=== PATIENT | male | born 1930 | race Caucasian/White ===

== ENCOUNTER 2016-05-14 18:20 | Emergency (ER) | payer MEDICARE, BC, OTHER ==
[~2016-05-14] VITALS: Ht 177.8 cm; Wt 75.0 kg
[~2016-05-14 18:20] MED LIST: ASPI325T PO; LIPI40TA PO; NITR0.4S SL; PROS5TAB2 PO; TAMS0.4C67 PO; TRAM50 PO
[2016-05-14 18:32] VITALS: BP 133/69; PULSE 73; RESP 16; TEMP 98.7; O2SAT 95
--- NOTE | 2016-05-14 18:58 | PD ---
HPI Chief Complaint: Psychiatric Symptoms Time Seen by Provider: 18:58 Travel History International Travel<30 days: No Contact w/Intl Traveler<30days: No Traveled to known affect area: No History of Present Illness HPI 85-year-old male presents to the emergency department under Fink act for psychiatric evaluation. Patient was caught stealing at the grocery store. He states that he has been living by himself and his passed weight 1 year ago. He states that he is struggling financially and has not been able to provide himself with groceries so he decided to steal some food in order to eat. Patient states he knows that this was wrong. He has never done anything like this in the past. When he was under arrest, he states that he became very panicked. He was very upset. He was tearful. He did make comment that he would rather than go to senior living. He pleaded with the police did not taken to senior living. Patient denies suicidal or homicidal ideations. States that he has only and lives by himself since his 1 year ago. Denies any other symptoms at this time. PFSH Past Medical History Arthritis: Yes Blood Disorders: No Cancer: Yes (PROSTATE) Cardiovascular Problems: Yes High Cholesterol: Yes Diminished Hearing: No Endocrine: No Gastrointestinal Disorders: Yes GERD: Yes Glaucoma: Yes Genitourinary: Yes Immune Disorder: No Implanted Vascular Access Dvce: No Musculoskeletal: Yes Neurologic: No Psychiatric: No Reproductive: No Respiratory: No Pancreatitis: Yes Radiation Therapy: Yes Past Surgical History Cardiac Surgery: Yes Cholecystectomy: Yes Coronary Artery Bypass Graft: Yes (X 5) Genitourinary Surgery: Yes (BILAT. INGUINAL HERNIA REPAIRS) Other Surgery: Yes (PROSTATECTOMY DUT CA) Social History Alcohol Use: Yes (2 GLASSES OF WINE A WEEK.) Tobacco Use: No Substance Use: No Allergies-Medications (Allergen,Severity, Reaction): Coded Allergies: No Known Allergies (Verified , 04/26/13) Reported Meds & Prescriptions Reported Meds & Active Scripts Active Ultram (Tramadol HCl) 50 Mg Tab 50 Mg PO Q6H PRN FOR PAIN Reported Proscar (Finasteride) 5 Mg Tab 5 Mg PO DAILY Nitrostat (Nitroglycerin) 0.4 Mg Subl 0.4 Mg SL PRN 1 TAB SL EVERY 5 MINS X 3 PRN CHEST PAIN Aspirin 325 Mg Tab 325 Mg PO DAILY Flomax (Tamsulosin HCl) 0.4 Mg Cap 0.4 Mg PO DAILY Lipitor (Atorvastatin Calcium) 40 Mg Tab 40 Mg PO DAILY Review of Systems Except as stated in HPI: all other systems reviewed are Neg Physical Exam Narrative GENERAL: Well-nourished elderly male patient, ambulatory and in no acute distress SKIN: Focused skin assessment warm/dry. HEAD: Atraumatic. Normocephalic. EYES: Pupils equal and round. No scleral icterus. No injection or drainage. ENT: No nasal bleeding or discharge. Mucous membranes pink and moist. NECK: Trachea midline. No JVD. CARDIOVASCULAR: Regular rate and rhythm. No murmur appreciated. RESPIRATORY: No accessory muscle use. Clear to auscultation. Breath sounds equal bilaterally. GASTROINTESTINAL: Abdomen soft, non-tender, nondistended. Hepatic and splenic margins not palpable. MUSCULOSKELETAL: No obvious deformities. No clubbing. No cyanosis. No edema. NEUROLOGICAL: Awake and alert. No obvious cranial nerve deficits. Motor grossly within normal limits. Normal speech. Data Data Last Documented VS Vital Signs Date Time Temp Pulse Resp B/P Pulse Ox O2 Delivery O2 Flow Rate FiO2 05/14/16 18:32 98.7 73 16 133/69 95 Orders Complete Blood Count With Diff (05/14/16 18:50) Basic Metabolic Panel (Bmp) (05/14/16 18:50) Urinalysis - C+S If Indicated (05/14/16 18:50) Psych Screen (05/14/16 18:50) Drug Screen, Random Urine (05/14/16 18:50) Alcohol (Ethanol) (05/14/16 18:50) Diet Regular Basic (05/15/16 Breakfast) Labs Laboratory Tests Test 05/14/16 05/14/16 18:38 19:05 Urine Color YELLOW Urine Turbidity CLEAR Urine pH 5.5 Urine Specific [place] 1.014 Urine Protein TRACE mg/dL Urine Glucose (UA) NEG mg/dL Urine Ketones NEG mg/dL Urine Occult Blood NEG Urine Nitrite NEG Urine Bilirubin NEG Urine Urobilinogen LESS THAN 2.0 MG/DL Urine Leukocyte Esterase NEG Urine RBC 1 /hpf Urine WBC LESS THAN 1 /hpf Urine Mucus FEW /lpf Microscopic Urinalysis Comment CULT NOT INDICATED Urine Opiates Screen NEG Urine Barbiturates Screen NEG Urine Amphetamines Screen NEG Urine Benzodiazepines Screen NEG Urine Cocaine Screen NEG Urine Cannabinoids Screen NEG White Blood Count 5.4 TH/MM3 Red Blood Count 4.13 MIL/MM3 Hemoglobin 13.2 GM/DL Hematocrit 38.8 % Mean Corpuscular Volume 93.8 FL Mean Corpuscular Hemoglobin 31.8 PG Mean Corpuscular Hemoglobin 33.9 % Concent Red Cell Distribution Width 14.0 % Platelet Count 152 TH/MM3 Mean Platelet Volume 8.3 FL Neutrophils (%) (Auto) 79.1 % Lymphocytes (%) (Auto) 10.0 % Monocytes (%) (Auto) 9.8 % Eosinophils (%) (Auto) 0.8 % Basophils (%) (Auto) 0.3 % Neutrophils # (Auto) 4.2 TH/MM3 Lymphocytes # (Auto) 0.5 TH/MM3 Monocytes # (Auto) 0.5 TH/MM3 Eosinophils # (Auto) 0.0 TH/MM3 Basophils # (Auto) 0.0 TH/MM3 CBC Comment DIFF FINAL Differential Comment Sodium Level 141 MEQ/L Potassium Level 4.1 MEQ/L Chloride Level 106 MEQ/L Carbon Dioxide Level 26.8 MEQ/L Anion Gap 8 MEQ/L Blood Urea Nitrogen 18 MG/DL Creatinine 1.07 MG/DL Estimat Glomerular Filtration 65 ML/MIN Rate Random Glucose 100 MG/DL Calcium Level 9.4 MG/DL Ethyl Alcohol Level LESS THAN 3 MG/DL MDM Medical Decision Making Medical Screen Exam Complete: Yes Emergency Medical Condition: Yes Medical Record Reviewed: Yes Differential Diagnosis Adjustment reaction versus mood disorder versus personality disorder versus depression Narrative Course 85-year-old male presents to emergency department under a Fink act for psychiatric evaluation. Lab work is without acute concern. Patient denies suicidal or homicidal ideations. I have discussed the patient's case management who has contacted family and will work to set up a web content & social media manager to come out to the house and help with resources. At this time, patient is medically cleared to undergo psychiatric screening for further evaluation and disposition. Mental health screening discussed with the patient. Psychiatric screen ordered. Diagnosis Primary Impression: Adjustment disorder with depressed mood Referrals: Primary Care Physician Patient Instructions: General Instructions, Normal Exam (ED) Additional Instructions: Follow-up with primary care provider Utilize outpatient resources to help as needed Return immediately with any acute worsening of symptoms Med/Other Pt SpecificInfo: No Change to Meds Disposition: 01 DISCHARGE HOME Condition: Stable Evy Lindo May 14, 2016 18:58
[2016-05-14 19:29] LABS: AUTOMATED NEUTROPHIL # 4.2 TH/MM3 (1.8-7.7); BASOPHIL % 0.3 % (0.0-2.0); EOSINOPHIL % 0.8 % (0.0-4.0); HEMATOCRIT 38.8 % (39.0-51.0); HEMO FLAGS DIFF FINAL; LYMPHOCYTE # 0.5 TH/MM3 (1.0-4.8); MEAN CELL VOLUME 93.8 FL (80.0-100.0); MEAN CORPUSCULAR HEMOGLOBIN 31.8 PG (27.0-34.0); MEAN CORPUSCULAR HGB CONC 33.9 % (32.0-36.0); MONO % 9.8 % (0.0-8.0); NEUT % 79.1 % (16.0-70.0); PLATELET COUNT 152 TH/MM3 (150-450); RED BLOOD COUNT 4.13 MIL/MM3 (4.50-5.90); WHITE BLOOD COUNT 5.4 TH/MM3 (4.0-11.0)
[2016-05-14 19:30] LABS: BLOOD, URINE NEG (NEG); COMMENT (UR) CULT NOT INDICATED; CULTURE IF INDICATED CULT NOT INDICATED; GLUCOSE,URINE NEG (NEG); KETONE, URINE NEG (NEG); MUCUS URINE FEW /lpf (OCC); NITRITE,URINE NEG (NEG); PH, URINE 5.5 (5.0-8.5); URINE COLOR YELLOW (YELLW/STRAW)
[2016-05-14 19:41] LABS: ANION GAP 8 MEQ/L (5-15); BICARBONATE 26.8 MEQ/L (21.0-32.0); BLOOD UREA NITROGEN 18 MG/DL (7-18); CHLORIDE 106 MEQ/L (98-107); GLOMERULAR FILTRATION RATE 65 ML/MIN (>89); POTASSIUM 4.1 MEQ/L (3.5-5.1); SODIUM (NA) 141 MEQ/L (136-145)
[2016-05-14 20:16] LABS: AMPHETAMINE, URINE NEG (NEG); BARBITURATES, URINE NEG (NEG); COCAINE, URINE NEG (NEG)
--- NOTE | 2016-05-15 05:48 | HHI.FF ---
Face to Face Verification Diagnosis: (1) Adjustment disorder with depressed mood Physical Therapy Order: Evaluate and Treat Occupational Therapy Order: Evaluate and Treat Home Health Aide Order: To Assist In: vat operator and meal prep Mathematics Technician Order: To Evaluate: Support services Order: To Provide: Community services I have seen patient Robbie Ugalde on 05/15/16. My clinical findings support the need for the requested home health care services because: Limited ability to care for self I certify that my clinical findings support that this patient is homebound because: Unsteady gait/balance Mita Baez MD May 15, 2016 05:48
--- NOTE | 2016-05-15 05:48 | PD ---
Physical Exam Narrative I, Dr. Baez, have reviewed the advance practice practitioner's documentation and am in agreement, met with the patient face to face, made the diagnosis, and the medical decision making was done by me. *My assessment and Findings: Patient is an 85-year-old male brought in by police under Fink act. Patient was caught shoplifting food because he has to food at home and he was very embarrassed. He says that he would rather kill himself then burred in his family, and is very embarrassed that he might have to go to nursing home. He says he never had any intention of wanting to hurt himself. He is not depressed. He just does not want to ask his family for help. He has no complaints at this time. Exam shows no acute abnormalities. Data Data Last Documented VS Vital Signs Date Time Temp Pulse Resp B/P Pulse Ox O2 Delivery O2 Flow Rate FiO2 05/14/16 18:32 98.7 73 16 133/69 95 Orders Complete Blood Count With Diff (05/14/16 18:50) Basic Metabolic Panel (Bmp) (05/14/16 18:50) Urinalysis - C+S If Indicated (05/14/16 18:50) Psych Screen (05/14/16 18:50) Drug Screen, Random Urine (05/14/16 18:50) Alcohol (Ethanol) (05/14/16 18:50) Labs Laboratory Tests Test 05/14/16 05/14/16 18:38 19:05 Urine Color YELLOW Urine Turbidity CLEAR Urine pH 5.5 Urine Specific [place] 1.014 Urine Protein TRACE mg/dL Urine Glucose (UA) NEG mg/dL Urine Ketones NEG mg/dL Urine Occult Blood NEG Urine Nitrite NEG Urine Bilirubin NEG Urine Urobilinogen LESS THAN 2.0 MG/DL Urine Leukocyte Esterase NEG Urine RBC 1 /hpf Urine WBC LESS THAN 1 /hpf Urine Mucus FEW /lpf Microscopic Urinalysis Comment CULT NOT INDICATED Urine Opiates Screen NEG Urine Barbiturates Screen NEG Urine Amphetamines Screen NEG Urine Benzodiazepines Screen NEG Urine Cocaine Screen NEG Urine Cannabinoids Screen NEG White Blood Count 5.4 TH/MM3 Red Blood Count 4.13 MIL/MM3 Hemoglobin 13.2 GM/DL Hematocrit 38.8 % Mean Corpuscular Volume 93.8 FL Mean Corpuscular Hemoglobin 31.8 PG Mean Corpuscular Hemoglobin 33.9 % Concent Red Cell Distribution Width 14.0 % Platelet Count 152 TH/MM3 Mean Platelet Volume 8.3 FL Neutrophils (%) (Auto) 79.1 % Lymphocytes (%) (Auto) 10.0 % Monocytes (%) (Auto) 9.8 % Eosinophils (%) (Auto) 0.8 % Basophils (%) (Auto) 0.3 % Neutrophils # (Auto) 4.2 TH/MM3 Lymphocytes # (Auto) 0.5 TH/MM3 Monocytes # (Auto) 0.5 TH/MM3 Eosinophils # (Auto) 0.0 TH/MM3 Basophils # (Auto) 0.0 TH/MM3 CBC Comment DIFF FINAL Differential Comment Sodium Level 141 MEQ/L Potassium Level 4.1 MEQ/L Chloride Level 106 MEQ/L Carbon Dioxide Level 26.8 MEQ/L Anion Gap 8 MEQ/L Blood Urea Nitrogen 18 MG/DL Creatinine 1.07 MG/DL Estimat Glomerular Filtration 65 ML/MIN Rate Random Glucose 100 MG/DL Calcium Level 9.4 MG/DL Ethyl Alcohol Level LESS THAN 3 MG/DL MDM Supervised Visit with MARIVEL: Yes Narrative Course Patient's daughter is here. She feels safe taking him home, and is going to help him with a shopping from now on. Case management consult it and will arrange for services for him at the house. Patient reiterates that he was never suicidal and never wanted to hurt himself, he was just very embarrassed. Fink act lifted and patient discharged home. Patient advised to call 911 if he was feeling depressed and return to the ED as needed for any worsening symptoms. Diagnosis Primary Impression: Adjustment disorder with depressed mood Referrals: Primary Care Physician Patient Instructions: General Instructions, Normal Exam (ED) Departure Forms: Tests/Procedures Additional Instruction: Follow-up with primary care provider Utilize outpatient resources to help as needed Return immediately with any acute worsening of symptoms Disposition: 01 DISCHARGE HOME Condition: Stable Mita Baez MD May 15, 2016 05:48
== END 2016-05-14 21:39 | disposition home or self-care (01) ==
LOC: NEDAMB 18:20
DX: F43.21 Adjustment disorder with depressed mood (principal); Z59.4 Lack of adequate food; Z79.899 Other long term (current) drug therapy
CPT/HCPCS: 80048; 80307; 81001; 85025; 99284